=== PATIENT | male | born 1975 | race Caucasian/White ===

== ENCOUNTER 2018-12-27 19:30 | Emergency (ER) | payer SELFPAY ==
[~2018-12-27] VITALS: Ht 172.7 cm; Wt 68.2 kg
[2018-12-27 19:45] VITALS: BP 135/72
== END 2018-12-27 20:03 | disposition left against medical advice (07) ==
LOC: EMS 19:38
DX: M25.519 Pain in unspecified shoulder (principal); Z53.21 Procedure and treatment not carried out due to patient leaving prior to being seen by health care provider